=== PATIENT | male | born 1975 | race Caucasian/White ===

== ENCOUNTER 2017-01-30 05:34 | Day surgery (SDC) | payer OTHER ==
[~2017-01-30] VITALS: Ht 170.2 cm; Wt 82.0 kg
[2017-01-30] VITALS (22 sets, daily range): BP systolic 101–136; BP diastolic 62–88; PULSE 68–120; RESP 12–18; Ht 170.2 cm; Wt 82.0 kg
[2017-01-30] MEDS ORDERED: PROPOFOL 40 ML ONE (07:04)
[2017-01-30] MEDS ORDERED: ROPIVACAINE 0.5 % 30 ML VIAL ONE ×2 (07:04→07:19)
[2017-01-30] MEDS ORDERED: FENTAnyl 50 MCG/ML VIAL ONE (07:04)
[2017-01-30] MEDS ORDERED: CEFAZOLIN 1 GM INJ ONE (07:04)
[2017-01-30] MEDS ORDERED: MIDAZOLAM 1 MG/ML 2 ML INJ ONE ×2 (07:04)
[2017-01-30] MEDS ORDERED: ROCURONIUM 50 MG INJ ONE ×2 (07:04→07:51)
[2017-01-30] MEDS ORDERED: ROPIVACAINE 0.2% 20 ML VIAL ONE (07:07)
[2017-01-30] MEDS ORDERED: GABA300C PO (07:09)
[2017-01-30] MEDS ORDERED: [UNRECOGNIZED DRUG - CODE] SC (07:09)
[2017-01-30] MEDS ORDERED: POLYMYXIN/BACITRACIN 1L IRRIG ONE (07:19)
[2017-01-30] MEDS ORDERED: BUPIVACAINE 0.5% (SDV) 30 ML INJ ONE (07:19)
[2017-01-30] MEDS ORDERED: NEOMYC/POLYMYX/BACIT 30 GM OINT ONE (07:19)
--- NOTE | 2017-01-30 07:28 | HPN ---
Date/Time of Note Date/Time of Note DATE: 01/30/17 TIME: 07:28 Interval H&P Admission Note Pt. seen H&P reviewed: No system changes ROSANA WILLIAM MD Jan 30, 2017 07:28
[2017-01-30] MEDS ORDERED: OXYCODONE/ACETAMINOPHEN (5/325) TAB PO PRN ×3 (07:30→09:00)
[2017-01-30] MEDS ORDERED: ONDANSETRON 4 MG INJ IV PRN ×2 (07:30→09:00)
[2017-01-30] MEDS ORDERED: HYDROmorphONE 1 MG/ML SYG IV PRN (07:30)
[2017-01-30] MEDS ORDERED: HYDROmorphONE 2 MG/ML SYG ONE (07:46)
[2017-01-30] MEDS ORDERED: ACETAMINOPHEN 1000MG/100ML IV 100 ML ONE (08:23)
[2017-01-30] MEDS ORDERED: METOCLOPRAMIDE 10 MG INJ ONE (08:23)
[2017-01-30] MEDS ORDERED: ONDANSETRON 4 MG INJ ONE (08:23)
[2017-01-30] MEDS ORDERED: KETOROLAC 30 MG INJ ONE (08:23)
[2017-01-30] MEDS ORDERED: DEXAMETHASONE 4 MG/ML 1 ML INJ ONE (08:24)
[2017-01-30] MEDS ORDERED: ALBUMIN HUMAN 5% 250 ML IV PRN (09:00)
[2017-01-30] MEDS ORDERED: hydrALAzine 20 MG INJ IV PRN (09:00)
[2017-01-30] MEDS ORDERED: MEPERIDINE 25 MG INJ IV PRN (09:00)
[2017-01-30] MEDS ORDERED: DIPHENHYDRAMINE 50 MG INJ IV PRN (09:00)
[2017-01-30] MEDS ORDERED: HYDROmorphONE (0.2 MG/ML) 10ML SYG IV PRN ×3 (09:00)
[2017-01-30] MEDS ORDERED: EPHEDrine SULFATE 50 MG/5 ML SYG IV PRN (09:00)
[2017-01-30] MEDS ORDERED: FENTAnyl 50 MCG/ML VIAL IV PRN ×3 (09:00)
[2017-01-30] MEDS ORDERED: LABETALOL HCL 20MG INJ IV PRN (09:00)
[2017-01-30] MEDS ORDERED: METOCLOPRAMIDE 10 MG INJ IV PRN (09:00)
--- NOTE | 2017-01-30 11:21 | SIPON ---
Date/Time of Note Date/Time of Note DATE: 01/30/17 TIME: 11:18 Operative Report Preoperative Diagnosis Left ankle lateral malleolus fracture Left ankle syndesmotic disruption left ankle deltoid rupture Postoperative Diagnosis Left ankle lateral malleolus fracture Left ankle syndesmotic disruption left ankle deltoid rupture Left ankle medial talar central dome chondral flap measuring 1 x 1 mm Operation/Procedure Performed Left ankle arthroscopy with extensive debridement Left ankle open reduction internal fixation of bimalleolar fracture Left ankle open reduction internal fixation of syndesmosis Left ankle deltoid repair Surgeon: ROSANA WILLIAM MD Anesthesia Type: general, other (popliteal given Toradol) Estimated Blood Loss: 0 - 10 ml's Transfusion Required: no Specimen: none Grafts/Implants Arthrex lateral ankle one third tubular plate Arthrex titanium tightrope Arthrex fiber tack 2 to the deltoid Complications: no ROSANA WILLIAM MD Jan 30, 2017 11:21
--- NOTE | 2017-01-30 14:14 | RADRPT ---
PROCEDURE: Intraoperative imaging of the left ankle with fluoroscopy. CLINICAL INDICATION: Left ankle pain. Intraoperative. TECHNIQUE: 20 images of the left ankle were obtained in the operating room with an image intensifi er. No radiologist was in attendance. Fluoroscopy time is 64 seconds. COMPARISON: No prior study is available for comparison. FINDINGS: Surgical instruments are noted overlying the left ankle. Images demonstrate open reduction and internal fixation with a lateral plate and multiple screws tra nsfixing the distal fibula and lateral malleolus. There is also a surgical device transfixing the d istal tibia and fibula. There is widening of the medial ankle mortise. IMPRESSION: 1. Intraoperative imaging of the left ankle . RPTAT: QQ .Kamaljit Bunn MD, MD Date Time Electronically viewed and signed by .Kamaljit Bunn MD, on 01/30/2017 14:13 .R/
--- NOTE | 2017-01-30 16:30 | OPR ---
Date/Time of Note Date/Time of Note DATE: 01/30/17 TIME: 16:28 Operative Report Procedure Date: Jan 30, 2017 Preoperative Diagnosis Left ankle lateral malleolus fracture Left ankle syndesmotic disruption left ankle deltoid rupture Postoperative Diagnosis Left ankle lateral malleolus fracture Left ankle syndesmotic disruption left ankle deltoid rupture Left ankle medial talar central dome chondral flap measuring 1 x 1 mm Operation Performed Left ankle arthroscopy with extensive debridement Left ankle open reduction internal fixation of bimalleolar fracture Left ankle open reduction internal fixation of syndesmosis Left ankle deltoid repair Surgeon: ROSANA WILLIAM MD Anesthesia Type: general, other (popliteal given Toradol) Anesthesiologist: NAVJOT ALVARADO MD Tourniquet Time: 105 min at 250 mmHg Estimated Blood Loss: 0 - 10 ml's Transfusion Required: no Specimen: none Grafts/Implants Arthrex Fiber Kingsley x 2 with #0 FiberWire Arthrex Titanium 1/3rd tubular plate Arthrex Titanium TightRope Complications: no Pt Condition Post Procedure: stable Disposition: PACU Indications Patient is a 41-year-old gentleman who sustained a 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 Operative\Procedure Findings Risk note: patient was explained the risks of surgery in the patients tus[place] language including but not limited to - infection, bleeding, injury to blood vessels, ligaments, and tendons, risk of anesthesia, arthritis and DVT/ Patient acknowledged the risks by signing the surgical consent Procedure Description The patient was met in the preoperative holding area, marked with the correct operative extremity confirmed with both patient and consent. The patient was then brought back in the operative theater, placed supine on operative table, given preoperative antibiotics and preoperative regional block anesthesia. The patient was then placed in the arthroscopic thigh bourne with all bony prominences well padded with a nonsterile tourniquet placed on the operative extremity. The patient was then prepped and draped in the normal sterile fashion. All parties in the room did a timeout and everyone agreed it was the correct patient, and extremity and procedure. Initial distraction was placed across the joint and the superficial peroneal nerve had been marked out prior to distraction, and using extreme caution to avoid any injury to the neurovascular structures, the anteromedial, anterolateral, and posterolateral portals were created in the standard fashion. The arthroscope was brought into the ankle and a 21-point exam was performed showing extensive hemorrhagic scar tissue and synovitis in the ankle with extensive scar tissue in both the medial, lateral, posterior and anterior gutters. The syndesmosis was extensively debrided with 1.5of the shaver able to be inserted. Also noted was the deep deltoid which was completely ruptured and visible in the medial gutter. After thorough debridement of the anterior medial , lateral, posterior and anterior gutters. After this was done, the ankle was irrigated thoroughly with normal saline and the arthroscopes were removed. At this point, the thigh bourne was removed and the patient was well padded under both extremities and patient was then reprepped and draped, and all gloves and instruments were changed. Attention was then turned initially to the distal fibular fracture. An incision was made over the the fibula. The incision was taken down to the fibula with care taken to avoid injury to the neurovascular structures. The fracture was identified and reduced and fixated with 3 interfragmentary screws then a 1/3 tibular fibular plate and fibula was reduced and held out to show that there was fibular length and alignment and rotation had been re-achieved. Once this was shown, the wound was irrigated thoroughly. A manual external rotation stress xray was performed showing syndesmosis widening. A syndesmotic tightrope was then placed across the joint to reduce the syndesmosis. Talar tilt stress xray was performed showing eversion stress opening medially showing deltoid rupture Attention was then brought over to the medial aspect of the ankle and incision was taken down over the medial aspect of the ankle where there was shown to be a ruptured deltoid ligament at the midportion. 2 fiberTaks were placed and the deltoid was repaired in a pants over vest fashion with 0 Fiberwire. Talar tilt and external rotation xrays showed no medial clear space widening or tilting All wounds were thoroughly irrigated and closed with initially 2-0 Vicryl, followed by 3-0 Monocryl followed by 3-0 nylon in a vertical mattress fashion. All wounds were dressed with Xeroform, antibiotic ointment, 4 x 4s, 5 ABDs were placed and the patient was placed in a well-padded short leg splint. Tourniquet had been brought down prior to this and hemostasis had been achieved prior to the wound closure. The wounds were irrigated thoroughly prior to closure as well. All sponge and needle counts were correct. ROSANA WILLIAM MD Jan 30, 2017 16:30
== END 2017-01-30 14:41 | disposition home or self-care (01) ==
LOC: SDS 05:34
PROVIDERS: ATTEND Orthopaedic Surgery
DX: S82.842A Displaced bimalleolar fracture of left lower leg, initial encounter for closed fracture (principal); S93.422A Sprain of deltoid ligament of left ankle, initial encounter; X58.XXXA Exposure to other specified factors, initial encounter; Y92.89 Other specified places as the place of occurrence of the external cause
CPT/HCPCS: 27695; 27814; 29898; 73610; 82306; J0131; J0690; J1100; J1170; J1885; J2250; J2405; J2765; J2795; J3010

== ENCOUNTER 2017-02-05 14:08 | Emergency (ER) | payer OTHER ==
[~2017-02-05] VITALS: Wt 79.1 kg
[~2017-02-05 14:08] MED LIST: GABA300C PO; [UNRECOGNIZED DRUG - CODE] SC
[2017-02-05] MEDS ORDERED: SOD CHLORIDE 0.9% 1,000 ML IV STA (14:16)
[2017-02-05] MEDS ORDERED: ONDANSETRON 4 MG INJ IV STA (14:16)
[2017-02-05 14:44] LABS: BASOPHIL # 0.1 10^3/ul (0.0-0.1); BASOPHILS % 0.6 % (0.0-2.0); EOSINOPHILS # 0.3 10^3/ul (0.0-0.5); EOSINOPHILS % 1.9 % (0.0-7.0); HEMATOCRIT 48.7 % (42.0-52.0); HEMOGLOBIN 16.2 g/dl (14.0-18.0); LYMPHOCYTES # 1.9 10^3/ul (0.8-2.9); LYMPHOCYTES % 11.5 % (15.0-51.0); MEAN CORPUSCULAR HEMOGLOBIN 31.1 pg (29.0-33.0); MEAN CORPUSCULAR HGB CONC 33.3 g/dl (32.0-37.0); MEAN CORPUSCULAR VOLUME 93.5 fl (82.0-101.0); MEAN PLATELET VOLUME 9.8 fl (7.4-10.4); MONOCYTE # 1.2 10^3/ul (0.3-0.9); MONOCYTES % 7.3 % (0.0-11.0); NEUTROPHILS % 78.1 % (39.0-77.0); PLATELET COUNT 380 10^3/UL (140-415); RED BLOOD COUNT 5.21 10^6/ul (4.70-6.10); RED CELL DISTRIBUTION WIDTH 12.6 % (11.5-14.5); WHITE BLOOD COUNT 16.2 10^3/ul (4.8-10.8)
[2017-02-05] MEDS ORDERED: RIVA10TA PO (14:45)
[2017-02-05] MEDS ORDERED: OXYC1TAB6 PO (14:45)
[2017-02-05 14:59] LABS: INR 0.89; PT RATIO 0.9
[2017-02-05 15:00] LABS: PARTIAL THROMBOPLASTIN TIME 30.9 Sec (25.0-35.0)
[2017-02-05 15:04] LABS: ALANINE AMINOTRANSFERASE 361 IU/L (13-69); ALBUMIN 4.7 g/dl (3.3-4.9); ALBUMIN/GLOBULIN RATIO 1.27; ALKALINE PHOSPHATASE 204 IU/L (42-121); ANION GAP 17 (8-16); ASPARTATE AMINO TRANSFERASE 121 IU/L (15-46); BILIRUBIN,INDIRECT 0.3 mg/dl (0-1.1); BILIRUBIN,TOTAL 0.3 mg/dl (0.2-1.3); BLOOD UREA NITROGEN 14 mg/dl (7-20); CARBON DIOXIDE 31 mmol/L (21-31); CHLORIDE 98 mmol/L (97-110); CREATININE 1.17 mg/dl (0.61-1.24); GLUCOSE 119 mg/dl (70-220); POTASSIUM 4.5 mmol/L (3.5-5.1); SODIUM 141 mmol/L (135-144); TOTAL PROTEIN 8.4 g/dl (6.1-8.1)
[2017-02-05 15:17] LABS: B-TYPE NATRIURETIC PEPTIDE 38 PG/ML (0-125)
[2017-02-05 15:18] LABS: TROPONIN-I < 0.012 ng/ml (0.00-0.12)
--- NOTE | 2017-02-05 15:43 | RADRPT ---
PROCEDURE: US Lower extremity Venous. CLINICAL INDICATION: Left leg edema TECHNIQUE: Multiple sonographic images of the left lower extremity deep venous system was obtained utilizing grayscale, color-flow, compressive sonography and doppler imaging with augmentation. The images were reviewed on a PACS workstation. COMPARISON: None. FINDINGS: There is normal compressibility and flow within the left common femoral, femoral, posterior tibial, peroneal and popliteal veins. RPTAT: AA IMPRESSION: No sonographic evidence for deep venous thrombosis. .Tj Carey MD, MD Date Time Electronically viewed and signed by .Tj Carey MD, on 02/05/2017 15:42 .S/
[2017-02-05] MEDS ORDERED: IOHEXOL 100 ML ONE (15:59)
[2017-02-05] MEDS ORDERED: SOD CHLORIDE 0.9% 100 ML ONE (15:59)
[2017-02-05] MEDS ORDERED: IOHEXOL 350MG/ML 50 ML BTL ONE (16:00)
--- NOTE | 2017-02-05 16:10 | ERA ---
ER Documentation Chief Complaint Date/Time DATE: 02/05/17 TIME: 16:07 Chief Complaint NAUSE AND VOMITING AND RIGHT LEG PAIN AND SWELLING. POST ORIF 01/30/2017 HPI This is a 41-year-old male who presents via EMS. I spoke to his orthopedic surgeon who states that he was being evaluated for left lower extremity pain and swelling and during his evaluation he started to become tachycardic, short of breath and diaphoretic. The patient was transferred via 911 to the emergency department. The patient is actually complaining of epigastric abdominal pain with nausea. He does describe some shortness of breath that is slightly worse with taking deep inspirations. No fevers or chills or cough. He describes abdominal pain as cramping and that there is fullness and swelling of his epigastrium. ROS All systems reviewed and are negative except as per history of present illness. Medications Home Meds Reported Medications Oxycodone Hcl-Acetaminophen* (Oxycodone Hcl-Acetaminophen*) 2.5-325 Mg Tablet, 1 TAB PO Q4H Y for SEVERE PAIN LEVEL 7-10, TAB 02/05/17 Rivaroxaban* (Xarelto*) 10 Mg Tablet, 10 MG PO DAILY, TAB 02/05/17 Gabapentin* (Neurontin*) 300 Mg Capsule, 1500 MG PO QPM, #60 CAP 01/30/17 Adalimumab (Humira) 40 Mg/0.8 Ml Syringekit, 40 MG SC QWEEK 01/30/17 Allergies Allergies: Coded Allergies: morphine (Verified Allergy, Unknown, 01/30/17) PMhx/Soc History of Surgery: Yes (LT ELBOW X 4/RT EAR X3/RT THUMB/RT WRIST/LT HAND/APPY/ YURI/NOSE SXs) Anesthesia Reaction: No Hx Neurological Disorder: No Hx Respiratory Disorders: No Hx Cardiac Disorders: No Hx Psychiatric Problems: No Hx Miscellaneous Medical Probl: No Hx Substance Use: No Hx Tobacco Use: No Smoking Status: Never smoker FmHx Family History: No diabetes Physical Exam Vitals Vital Signs Date Time Temp Pulse Resp B/P Pulse Ox O2 Delivery O2 Flow Rate FiO2 02/05/17 14:20 98.5 85 20 128/89 98 Physical Exam General: Slightly diaphoretic and uncomfortable head: Normocephalic, atraumatic Eyes: Pupils equally reactive, EOM intact ENT: Moist mucous membranes Neck: Supple, no lymphadenopathy Respiratory: Lungs clear bilaterally, no distress Cardiovascular: Slight tachycardia, no murmurs, rubs, or gallops Abdominal: Soft, mild epigastric tenderness to palpation without rebound or guarding, no pulsatile mass : Deferred MSK: No edema, no unilateral swelling, 5/5 strength Neurologic: Alert and oriented, moving all extremities, normal speech, no focal weakness, no cerebellar signs Skin: No rash Psych: Normal mood Result Diagram: 02/05/17 1430 02/05/17 1430 Results 24 hrs Laboratory Tests Test 02/05/17 14:30 White Blood Count 16.210^3/ul Red Blood Count 5.2110^6/ul Hemoglobin 16.2g/dl Hematocrit 48.7% Mean Corpuscular Volume 93.5fl Mean Corpuscular Hemoglobin 31.1pg Mean Corpuscular Hemoglobin Concent 33.3g/dl Red Cell Distribution Width 12.6% Platelet Count 00663^3/UL Mean Platelet Volume 9.8fl Neutrophils % 78.1% Lymphocytes % 11.5% Monocytes % 7.3% Eosinophils % 1.9% Basophils % 0.6% Nucleated Red Blood Cells % 0.0/100WBC Neutrophils # (Manual) 12.610^3/ul Lymphocytes # 1.910^3/ul Monocytes # 1.210^3/ul Eosinophils # 0.310^3/ul Basophils # 0.110^3/ul Nucleated Red Blood Cells # 0.010^3/ul Prothrombin Time 12.0Sec Prothrombin Time Ratio 0.9 INR International Normalized Ratio 0.89 Activated Partial Thromboplast Time 30.9Sec Sodium Level 141mmol/L Potassium Level 4.5mmol/L Chloride Level 98mmol/L Carbon Dioxide Level 31mmol/L Anion Gap 17 Blood Urea Nitrogen 14mg/dl Creatinine 1.17mg/dl Glucose Level 119mg/dl Calcium Level 10.0mg/dl Total Bilirubin 0.3mg/dl Direct Bilirubin 0.00mg/dl Indirect Bilirubin 0.3mg/dl Aspartate Amino Transf (AST/SGOT) 121IU/L Alanine Aminotransferase (ALT/SGPT) 361IU/L Alkaline Phosphatase 204IU/L Troponin I < 0.012ng/ml B-Type Natriuretic Peptide 38PG/ML Total Protein 8.4g/dl Albumin 4.7g/dl Globulin 3.70g/dl Albumin/Globulin Ratio 1.27 Lipase 69U/L Current Medications Medications (Trade) Dose Ordered Sig/Lisset Route PRN Reason Start Time Stop Time Status Last Admin Dose Admin Sodium Chloride (NS) 1,000 ml @ 1,000 mls/hr Q1H STAT IV 02/05/17 14:16 02/05/17 15:15 DC 02/05/17 14:43 Ondansetron HCl (Zofran Inj) 4 mg ONCE STAT IV 02/05/17 14:16 02/05/17 14:19 DC 02/05/17 14:42 IV Flush 10 ml 10 ml STK-MED ONCE .ROUTE 02/05/17 15:59 02/05/17 16:00 DC Sodium Chloride 100 ml @ ud STK-MED ONCE .ROUTE 02/05/17 15:59 02/05/17 16:00 DC Iohexol (Omnipaque) 100 ml @ ud STK-MED ONCE .ROUTE 02/05/17 15:59 02/05/17 16:00 DC Iohexol (Omnipaque 350mg/ ml) 50 ml STK-MED ONCE .ROUTE 02/05/17 16:00 02/05/17 16:01 DC Procedures/MDM EKG, MONITORS, & DIAGNOSTIC IMAGING: EKG: I reviewed and interpreted a 12-lead EKG. Rhythm: Normal sinus rhythm Ectopy: None Intervals: No abnormalities ST segments: No elevations or depressions T waves: No contiguous inversions Chest x-ray: I reviewed and interpreted a 1 view of the chest Mediastinum: No enlargement Cardiac silhouette: No cardiomegaly Airspace: Clear lung bui bilaterally without evidence of pneumothorax Bones: No evidence of fracture CTPA: IMPRESSION: 1. No evidence of large or central pulmonary emboli. 2. No aortic aneurysm or dissection. 3. Lungs clear CT abdomen and pelvis: IMPRESSION: 1. Status post cholecystectomy and appendectomy. 2. Mild constipation with retained feces throughout the colon. 3. Otherwise unremarkable contrast enhanced CT abdomen and pelvis without acute pathology identified. RPTAT: GG Lower extremity duplex: No DVT per radiologist LAB INTERPRETATION: Leukocytosis, Nonspecific transaminitis, negative troponin MEDICAL DECISION MAKING: The patient presents with an odd presentation of palpitations, shortness of breath and epigastric abdominal pain. He had recent ORIF of the left lower extremity. He has been describing left leg pain. The patient is at risk for DVT, consider pulmonary embolism. Unclear why the patient is having abdominal pain though he has not had a bowel movement possibly secondary to narcotic ileus. The patient has been taking pain medications at home. Low concern for acute coronary syndrome. Laboratory testing and CT imaging would be appropriate given moderate risk based on Wells criteria. D-dimer would not be appropriate. ER COURSE: The patient's laboratory testing shows leukocytosis that is likely secondary to stress response and demargination. The patient CT imaging is negative other than showing constipation. I believe the patient's clinical presentation was consistent with likely vagal response secondary to abdominal cramping in the setting of narcotic related constipation. The patient states dramatic resolution at this time. I spoke to Dr. Merlos, who states that the patient can be safely discharged and taken to his splint center for further care of the splint. I believe the patient would benefit from advancement of bowel regimen with mag citrate and glycerin suppository. I kept the patient and/or family informed of laboratory and diagnostic imaging results throughout the emergency room course. DISPOSITION PLAN: We discussed follow up with the patient's primary care doctor within 24 to 48 hours as needed. We also discussed return to the emergency room for worsening symptoms or worsening condition. Outpatient referral: [None required] Discharge Medications: Mag citrate and glycerin suppository Departure Diagnosis: Primary Impression: Constipation Qualified Code: K59.00 - Constipation, unspecified constipation type Additional Impression: Nausea and vomiting Qualified Code: R11.2 - Nausea and vomiting, intractability of vomiting not specified, unspecified vomiting type Condition: Stable AGGIE MEYER MD Feb 05, 2017 16:10
--- NOTE | 2017-02-05 16:31 | RADRPT ---
PROCEDURE: CTA Chest. CLINICAL INDICATION: Chest pain and shortness of breath TECHNIQUE: Continues 1.25 mm axial images were obtained from lung apices to the domes of diaphragm s following intravenous injection of 100 cc of Isovue 370. Images reconstructed in coronal, sagitta l, and 3-D format using maximum intensity projection technique.. The calculated dose length product (DLP) = 631.92 mGy-cm. The CTDlvol = 16.68 mGy. One or more of the following dose reduction techniq ues were used: Automated exposure control, adjustment of the mA and or KV according to patient size, or use of iterative reconstruction technique. COMPARISON: No prior studies are available for comparison. FINDINGS: Images through the pulmonary arteries demonstrates no evidence of large or central pulmonary emboli. The ascending and descending thoracic aorta are normal in caliber without aneurysmal dilatation or dissection. Heart chambers are normal in size. There is no pericardial effusion. No significant efren nary calcification is seen. There are no pathologically enlarged mediastinal or axillary lymph nodes . Evaluation of the lung bui demonstrates no confluent pneumonia, pleural fluid, or pneumothorax. N o suspicious or dominant lung nodules/masses are seen. No destructive bony lesions are identified. IMPRESSION: 1. No evidence of large or central pulmonary emboli. 2. No aortic aneurysm or dissection. 3. Lungs clear RPTAT: HH .Dar Riggins MD, MD Date Time Electronically viewed and signed by .Dar Riggins MD, MD on 02/05/2017 16:31 .W/
--- NOTE | 2017-02-05 16:32 | RADRPT ---
PROCEDURE: CT Abdomen and Pelvis with intravenous contrast. CLINICAL INDICATION: Abdominal pain.. Recent left lower leg surgery. TECHNIQUE: CT scan of the abdomen and pelvis with intravenous contrast was performed on the multi- slice CT scanner. The patient was scanned following the uncomplicated intravenous administration of 100 cc of Omnipaque-300 contrast. Coronal and sagittal reformatted images were obtained from the a xial source images. Images were reviewed on a high-resolution PACS workstation. Total DLP = 1430.9 mGy-cm. CTDIvol = 56.3, 16.7, 12.1 mGy. One or more of the following dose reduction techniques were used: Automated exposure control. Adjustment of the mA and/or kV according to patient size. Use of iterative reconstruction technique. COMPARISON: None. FINDINGS: CT abdomen and pelvis: The lung bases are clear. The heart size is normal in size. The liver is normal in size and densit y without focal mass or intrahepatic biliary dilatation. The spleen is normal in size and homogeneo us in density. The pancreas as visualized is normal. The gallbladder has been removed.. The adre nal glands are normal. The kidneys are symmetrically unremarkable. No urolithiasis, obstructive ur opathy, or solid mass lesion is seen. The stomach is partially collapsed, but is grossly unremarkable. The small bowels are unremarkable. The colon and rectum are normal. There is mild retained feces throughout the colon and rectum. Statu s post appendectomy with clip near the cecum.. No evidence of acute appendicitis or diverticulitis. The pelvic organs are normal. The bladder is normal. There is no abdominal or pelvic adenopathy, fr ee fluid, free air, mass or mesenteric inflammation. The aorta is normal in caliber and course. The osseous structures are intact. No osteolytic or osteo blastic lesions are identified. The soft tissues are within normal limits. IMPRESSION: 1. Status post cholecystectomy and appendectomy. 2. Mild constipation with retained feces throughout the colon. 3. Otherwise unremarkable contrast enhanced CT abdomen and pelvis without acute pathology identifie d. RPTAT: GG .Dominik Motta MD, MD Date Time Electronically viewed and signed by .Dominik Motta MD, on 02/05/2017 16:32 .Allie/
[2017-02-05 16:45] VITALS: BP 120/78; PULSE 78; RESP 20
[2017-02-05] MEDS ORDERED: GLYC1SUP92 PR (16:50)
[2017-02-05] MEDS ORDERED: MAGN296S40 PO (16:50)
== END 2017-02-05 16:59 | disposition home or self-care (01) ==
LOC: E/R 14:08
DX: K59.00 Constipation, unspecified (principal); R06.02 Shortness of breath; R40.2142 Coma scale, eyes open, spontaneous, at arrival to emergency department; R40.2362 Coma scale, best motor response, obeys commands, at arrival to emergency department
CPT/HCPCS: 36415; 71275; 74177; 80053; 83690; 83880; 84484; 85025; 85610; 85730; 93005; 93971; 96374; 99285; J2405; J7030; Q9967